=== PATIENT | female | born 1990 | race Caucasian/White ===

== ENCOUNTER 2019-05-22 19:48 | Emergency (ER) | payer OTHER ==
[2019-05-22 20:48] LABS: ABS Eosinophils 0.1 10^3/ul (0-0.6); ABS Lymphocytes 2.2 10^3/ul (1.0-4.8); ABS Monocytes 0.3 10^3/ul (0-0.8); ABS Neutrophils 6.8 10^3/ul (1.5-7.7); Eosinophil % 1.5 %; Hematocrit 40 % (35-47); Hemoglobin 13.4 g/dL (12.0-16.0); Lymphocyte % 22.8 %; Mean Corpuscular HGB Conc 33 g/dL (31-36); Mean Corpuscular Hemoglobin 31 pg (27-31); Mean Corpuscular Volume 91 fL (80-97); Mean Platelet Volume 7.2 fL (7.4-10.4); Platelet Count 285 10^3/uL (150-450); Red Blood Count 4.39 10^6 /uL (3.70-4.87); Red Cell Distribution Width 14 % (10-15); White Blood Count 9.5 10^3/uL (3.5-10.8)
[2019-05-22 21:06] LABS: Albumin 4.2 g/dL (3.2-5.2); Albumin/Globulin Ratio 1.8 (1-3); BUN/Creatinine Ratio 10.8 (8-20); C Reactive Protein 3.33 mg/L (<8.01); Calcium 9.3 mg/dL (8.6-10.3); EGFR African American 132.3 (>60); EGFR Non-African American 109.3 (>60); Globulin 2.4 g/dL (2-4); Potassium 3.2 mmol/L (3.5-5.0); Total Bilirubin 0.2 mg/dL (0.2-1.0); Total Protein 6.6 g/dL (6.4-8.9)
[2019-05-22] MEDS ORDERED: Ketorolac INJ* 30 MG/ML 1 ML VIAL IM ONE (21:31)
--- NOTE | 2019-05-22 21:31 | ED ---
HPI Chest Pain - HPI Summary HPI Summary: 28 year old female presents with chest pain for the past couple days. She said it starts in the center of her chest. States that has moved into her right arm. She said that when she moves her arms it is worse. She denies any shortness breath. Pain is unchanged when she takes a breath. She's not been sick recently. Does not change when she eats something. Denies any nausea vomiting. No abdominal pain. No sore throat. Has not been sick recently. States it hurts more when she is on her right side. She hasn't taking for her symptoms. She has never had this before. Does have family history of cardiac disease. Has no medical conditions. Is not on control. Denies any pain or swelling in her calf muscle. she denies any family history of blood clots. She is not on any kind of control. - History of Current Complaint Chief Complaint: EDChestPainROMI Time Seen by Provider: 05/22/19 20:19 Pain Intensity: 8 - Allergy/Home Medications Allergies/Adverse Reactions: Allergies Allergy/AdvReac Type Severity Reaction Status Date / Time latex Allergy Hives Verified 05/22/19 19:58 Penicillins Allergy GI Upset Verified 05/22/19 19:58 tramadol Allergy Hives Verified 05/22/19 19:58 PMH/Surg Hx/FS Hx/Imm Hx Endocrine/Hematology History: Denies: Hx Anticoagulant Therapy Respiratory History: Denies: Hx Asthma Infectious Disease History: No Infectious Disease History: Denies: Traveled Outside the [place] in Last 30 Days - Family History Known Family History: Positive: Cardiac Disease - Social History Alcohol Use: None Substance Use Type: Reports: None Smoking Status (MU): Heavy Every Day Tobacco Smoker Review of Systems Negative: Fever Positive: Chest Pain Negative: Shortness Of Breath, Cough Negative: Abdominal Pain All Other Systems Reviewed And Are Negative: Yes Physical Exam Triage Information Reviewed: Yes Vital Signs On Initial Exam: Initial Vitals Temp Pulse Resp BP Pulse Ox 97.2 F 66 15 124/85 100 05/22/19 19:56 05/22/19 19:56 05/22/19 19:56 05/22/19 19:56 05/22/19 19:56 Vital Signs Reviewed: Yes Appearance: Positive: Well-Appearing Skin: Positive: Warm, Dry Head/Face: Positive: Normal Head/Face Inspection Eyes: Positive: Normal, Conjunctiva Clear ENT: Positive: Pharynx normal Respiratory/Lung Sounds: Positive: Clear to Auscultation, Breath Sounds Present , Other - reproducible chest pain Cardiovascular: Positive: Normal, RRR Abdomen Description: Positive: Nontender, Soft Bowel Sounds: Positive: Present Musculoskeletal: Positive: Normal Neurological: Positive: Normal Psychiatric: Positive: Normal Procedures - Sedation Patient Received Moderate/Deep Sedation with Procedure: No Diagnostics - Vital Signs Vital Signs Temp Pulse Resp BP Pulse Ox 05/22/19 21:00 64 28 94 05/22/19 20:52 65 18 116/76 99 05/22/19 20:36 72 16 130/82 99 05/22/19 20:22 64 18 125/77 100 05/22/19 20:19 76 95 05/22/19 19:56 97.2 F 66 15 124/85 100 - Laboratory Lab Results: Lab Results 05/22/19 05/22/19 05/22/19 Range/Units 20:39 20:39 20:39 WBC 9.5 (3.5-10.8) 10^3/uL RBC 4.39 (3.70-4.87) 10^6 /uL Hgb 13.4 (12.0-16.0) g/dL Hct 40 (35-47) % MCV 91 (80-97) fL MCH 31 (27-31) pg MCHC 33 (31-36) g/dL RDW 14 (10-15) % Plt Count 285 (150-450) 10^3/uL MPV 7.2 L (7.4-10.4) fL Neut % (Auto) 71.8 % Lymph % (Auto) 22.8 % Dougherty % (Auto) 3.6 % Eos % (Auto) 1.5 % Baso % (Auto) 0.3 % Absolute Neuts (auto) 6.8 (1.5-7.7) 10^3/ul Absolute Lymphs (auto) 2.2 (1.0-4.8) 10^3/ul Absolute Monos (auto) 0.3 (0-0.8) 10^3/ul Absolute Eos (auto) 0.1 (0-0.6) 10^3/ul Absolute Basos (auto) 0.0 (0-0.2) 10^3/ul Absolute Nucleated RBC 0.0 10^3/ul Nucleated RBC % 0.0 Sodium 139 (135-145) mmol/L Potassium 3.2 L (3.5-5.0) mmol/L Chloride 106 (101-111) mmol/L Carbon Dioxide 28 (22-32) mmol/L Anion Gap 5 (2-11) mmol/L BUN 7 (6-24) mg/dL Creatinine 0.65 (0.51-0.95) mg/dL Est GFR ( Amer) 132.3 (>60) Est GFR (Non-Af Amer) 109.3 (>60) BUN/Creatinine Ratio 10.8 (8-20) Glucose 90 (70-100) mg/dL Lactic Acid 1.2 (0.5-2.0) mmol/L Calcium 9.3 (8.6-10.3) mg/dL Total Bilirubin 0.20 (0.2-1.0) mg/dL AST 11 L (13-39) U/L ALT 12 (7-52) U/L Alkaline Phosphatase 75 (34-104) U/L Troponin I 0.00 (<0.03) ng/mL C-Reactive Protein 3.33 (<8.01) mg/L B-Natriuretic Peptide (<=100) pg/mL Total Protein 6.6 (6.4-8.9) g/dL Albumin 4.2 (3.2-5.2) g/dL Globulin 2.4 (2-4) g/dL Albumin/Globulin Ratio 1.8 (1-3) 05/22/19 Range/Units 20:39 WBC (3.5-10.8) 10^3/uL RBC (3.70-4.87) 10^6 /uL Hgb (12.0-16.0) g/dL Hct (35-47) % MCV (80-97) fL MCH (27-31) pg MCHC (31-36) g/dL RDW (10-15) % Plt Count (150-450) 10^3/uL MPV (7.4-10.4) fL Neut % (Auto) % Lymph % (Auto) % Dougherty % (Auto) % Eos % (Auto) % Baso % (Auto) % Absolute Neuts (auto) (1.5-7.7) 10^3/ul Absolute Lymphs (auto) (1.0-4.8) 10^3/ul Absolute Monos (auto) (0-0.8) 10^3/ul Absolute Eos (auto) (0-0.6) 10^3/ul Absolute Basos (auto) (0-0.2) 10^3/ul Absolute Nucleated RBC 10^3/ul Nucleated RBC % Sodium (135-145) mmol/L Potassium (3.5-5.0) mmol/L Chloride (101-111) mmol/L Carbon Dioxide (22-32) mmol/L Anion Gap (2-11) mmol/L BUN (6-24) mg/dL Creatinine (0.51-0.95) mg/dL Est GFR ( Amer) (>60) Est GFR (Non-Af Amer) (>60) BUN/Creatinine Ratio (8-20) Glucose (70-100) mg/dL Lactic Acid (0.5-2.0) mmol/L Calcium (8.6-10.3) mg/dL Total Bilirubin (0.2-1.0) mg/dL AST (13-39) U/L ALT (7-52) U/L Alkaline Phosphatase (34-104) U/L Troponin I (<0.03) ng/mL C-Reactive Protein (<8.01) mg/L B-Natriuretic Peptide 17 (<=100) pg/mL Total Protein (6.4-8.9) g/dL Albumin (3.2-5.2) g/dL Globulin (2-4) g/dL Albumin/Globulin Ratio (1-3) Result Diagrams: 05/22/19 20:39 05/22/19 20:39 Lab Statement: Any lab studies that have been ordered have been reviewed, and results considered in the medical decision making process. - Radiology chest Radiology Interpretation Completed By: ED Physician Summary of Radiographic Findings: no active disease - EKG No standard instances Cardiac Rate: NL EKG Rhythm: Sinus Rhythm Summary of EKG Findings: sinus rhythm Re-Evaluation - Re-Evaluation First Eval Re-Evaluation Time: 22:14 Change: Improved Comment: feeling better Chest Pain Course/Dx - Course Course Of Treatment: 28 year old female presents with chest pain for the past couple days. She said it starts in the center of her chest. States that has moved into her right arm. She said that when she moves her arms it is worse. She denies any shortness breath. Pain is unchanged when she takes a breath. She's not been sick recently. Does not change when she eats something. Denies any nausea vomiting. No abdominal pain. No sore throat. Has not been sick recently. States it hurts more when she is on her right side. She hasn't taking for her symptoms. She has never had this before. Does have family history of cardiac disease. Has no medical conditions. Is not on control. Denies any pain or swelling in her calf muscle. she denies any family history of blood clots. She is not on any kind of control. On exam has reproducible chest pain. EKG shows a sinus rhythm. Troponin 0. No risk factors for blood clot. heart score 2. improvement with toradol. Will discharge with chest wall pain. Patient understands and agrees plan. - Chest Pain Differential Diagnosis/HQI/PQRI: Angina, Chest Wall, Pulmonary Embolism - Diagnoses Provider Diagnoses: Chest wall pain Discharge ED - Sign-Out/Discharge Documenting (check all that apply): Patient Departure - Discharge Plan Condition: Good Disposition: HOME Patient Education Materials: Chest Wall Pain (ED) Referrals: Sandra Adhikari NP [Primary Care Provider] - Additional Instructions: Take ibuprofen or Tylenol every 6 hours as needed for pain Follow up with primary within 5 days Return to ED if develop any new or worsening symptoms - Billing Disposition and Condition Condition: GOOD Disposition: Home
[2019-05-22] MEDS ORDERED: Potassium Chloride* LIQUID 20 MEQ/15 ML UDC PO ONE (22:12)
[2019-05-22 22:30] VITALS: BP 125/72
== END 2019-05-22 22:17 | disposition home or self-care (01) ==
LOC: ED 19:48
DX: R07.89 Other chest pain (principal); Z88.5 Allergy status to narcotic agent; Z88.0 Allergy status to penicillin; Z91.040 Latex allergy status; F17.200 Nicotine dependence, unspecified, uncomplicated
CPT/HCPCS: 36415; 71046; 80053; 83605; 83880; 84484; 85025; 85379; 86140; 93005; 96372; 99282; A9270-GY; J1885

== ENCOUNTER 2019-07-07 13:34 | Emergency (ER) | payer OTHER ==
--- OUTSIDE RECORDS SUMMARY | 2019-07-07 13:41 | XMS REPORT | Continuity of Care Document ---
:1990 External Reference #:[id number] Author Name Champ Hickman Description No Information Available Social History Type Date Description Comments Sex Unknown Allergies, Adverse Reactions, Alerts Description No Information Available Medications Description No Information Available Immunizations Description No Information Available Vital Signs Description No Information Available Results Description No Information Available Procedures Date Code Description Status 06/07/2019 10872 Holter Monitor Review (24 hr)dr hernández & clemente only Completed Medical Devices Description No Information Available Encounters Description No Information Available Assessments Date Code Description Provider 06/07/2019 R00.2 Palpitations Silva Musa M.D. Plan of Treatment Future Appointment(s):08/24/2019 1:00 pm - Pedro Luis Aceves M.D. at [facility] Functional Status Description No Information Available Mental Status Description No Information Available Referrals Description No Information Available
--- OUTSIDE RECORDS SUMMARY | 2019-07-07 13:41 | XMS REPORT | Continuity of Care Document ---
:1990 External Reference #:[id number] Author Name Kingsley Dumont M.D. (transmitted by agent of provider Venus Dahl) Address [address] [place] [address] Care Team Providers Name Role Phone Sandra Adhikari NP - Family Care Team Information Floorworker Lasting [phone] Problems Description No Information Available Social History Type Date Description Comments Sex Unknown Tobacco Use Start: Unknown Light tobacco smoker (10 or fewer cigarettes/day) Smoking Status Reviewed: 06/15/19 Light tobacco smoker (10 or fewer cigarettes/day) ETOH Use Denies alcohol use Tobacco Use Start: Unknown Light tobacco smoker (10 or fewer cigarettes/day) Recreational Drug Use Denies Drug Use Allergies, Adverse Reactions, Alerts Active Allergies Reaction Severity Comments Date Penicillin 06/15/2019 Tramadol 06/15/2019 Medications Active Medications SIG Qnty Indications Ordering Provider Date Hydroxyzine HCL 3 times a day as Unknown 50mg needed Tablets Paxil 1 by mouth every Unknown 20mg Tablets day Immunizations Description No Information Available Vital Signs Date Vital Result Comment 06/15/2019 3:39pm Height 63 inches 5'3" Weight 204.31 lb with shoes Heart Rate 74 /min BP Systolic 108 mmHg Rue large cuff BP Diastolic 68 mmHg Rue large cuff BP Systolic Sitting 112 mmHg Lue large cuff BP Diastolic Sitting 72 mmHg Lue large cuff BP Systolic Standing 102 mmHg Lue large cuff BP Diastolic Standing 68 mmHg Lue large cuff Respiratory Rate 18 /min BMI (Body Mass Index) 36.2 kg/m2 Ejection Fraction 50-55% ECHO 06/07/2019 Results Test Acquired Date Facility Test Result H/L Range Note Laboratory test 06/15/2019 [facility] Cortisol <pending> finding [address] [place] [address] [phone] Iron (Fe) <pending> Magnesium <pending> Vitamin B12 And Folate 06/15/2019 [facility] Vitamin B12 < pending> Serum [address] [place] [address] [phone] Folic Acid (Folate) <pending> Procedures Date Code Description Status 06/15/2019 92275 EKG Tracing & Interpretation Completed 06/07/2019 06300 Holter Monitor Review (24 hr)dr hernández & interp only Completed Medical Devices Description No Information Available Encounters Description No Information Available Assessments Date Code Description Provider 06/15/2019 R00.2 Palpitations Kingsley Dumont M.D. 06/15/2019 R00.0 Tachycardia, unspecified Kingsley Dumont M.D. 06/15/2019 E66.9 Obesity, unspecified Kingsley Dumont M.D. 06/15/2019 R07.9 Chest pain, unspecified Kingsley Dumont M.D. 06/15/2019 Z82.49 Family history of ischemic heart Kingsley Dumont M.D. disease and other diseases of the circulatory system 06/15/2019 Z71.6 Tobacco abuse counseling Kingsley Dumont M.D. 06/07/2019 R00.2 Palpitations Silva Musa M.D. Plan of Treatment Future Appointment(s):08/10/2019 4:40 pm - Kingsley Dumont M.D. at [facility]07/06/2019 8:45 am - Ica ECHO Schedule at [facility]07/06/2019 9:15 am - Kingsley Dumont M.D. at [facility]08/24/2019 1:00 pm - Pedro Luis Aceves M.D. at [facility]06/15/2019 - Kingsley Dumont M.D.R00.2 PalpitationsFollow up:5-8 wks ov to discuss all jouqqP08.0 Tachycardia, unspecifiedNew Orders:[facility], Ordered: E66.9 Obesity, [id number] Chest pain, unspecifiedNew Orders:Stress Test , Treadmill, No Imaging, Ordered: 06/15/19Z82.49 Family history of ischemic heart disease and other diseases of the circulatory cflnagZ60.6 Tobacco abuse counseling Functional Status Description No Information Available Mental Status Description No Information Available Referrals Description No Information Available
--- OUTSIDE RECORDS SUMMARY | 2019-07-07 13:41 | XMS REPORT | Continuity of Care Document ---
:1990 Author Organization 2019 [employer] [facility] Address [address] [place] [address] Phone Care Team Providers Name Role Phone [employer] Unavailable Unavailable Allergies, Adverse Reactions, Alerts Substance Reaction Status tramadol Hives (severe) Active Penicillins Active latex Hives Active Medications Medication Instructions Dosage Effective Dates Status Comments (start - stop) Ventolin HFA 90 inhale 2 puff by 180 MCG - Active mcg/actuation inhalation route aerosol inhaler every 4 - 6 hours as needed Advair Diskus 100 inhale 1 puff by 1.00 puff - Active mcg-50 mcg/dose inhalation route 2 powder for times every day in inhalation the morning and evening approximately 12 hours apart paroxetine 20 mg take 1 tablet by 20 MG - Active tablet oral route every day hydroxyzine HCl 50 take 1 tablet by 50 MG - Active mg tablet oral route 3 times every day Wellbutrin 100 mg take 1 tablet by 100 MG - No Longer tablet oral route 3 times Active every day Problems Condition Effective Dates (start - stop) Clinical Status Pseudotumor cerebri Irregular menses Moderate persistent reactive airway disease without complication PTSD (post-traumatic stress disorder) Anxiety Encounter For Removal Of Sutures - Wound Procedures Procedure Date Procedure Unknown Results Test Name Date and Time Measure Units Reference Range Abnormal Flag Status Comments Unknown Encounters Encounter Practice Location Reason(s) Diagnoses Date Provider Providers Description For Visit Copied on Encounter 2019 [facility] Pseudotumor Apr- [facility] [employer] [facility], Primary cerebriIrregular 1-[address] [place]. [address] m[address]erate [address] , [facility], reactive airway [address]. [place] disease without tel:[phone] [place], [place], complicationPTSD [phone], [place] (post-traumatic tel:+ stress [phone] disorder)Anxiety 0001 - S Apr- [facility], Primary 0[address] [place]. 33- Care [address] [place] [address] [place], [place], [address]. Kranthi tel:[phone] [place], [address], [place] tel:+ [phone] - S Encounter For Nov-2 INFANTE MARTIN. S Inc, Primary Removal Of [address]- Care Sutures [address] [place], [place], [facility] [address]. Kranthi tel:[phone] [place], [address], [place] tel:+ [phone] - S Wound Nov- MASHRIQI Referring S [facility], Primary 5-201 [place]. Provider: Care 4 [facility] Hospitalist [facility], [place], [place], [place], [place], Hospitalist [address], [place] [address]. Program, tel: tel:[phone] Kranthi [phone] [address] [place], [address]. tel:[phone] Family History Family Member Diagnosis Age At Onset Unknown Immunizations Vaccine Date Status Comments Immunization Unknown Payers Payer name Insurance type Covered alliance party ID Authorization(s) Unknown Social History Type Description Quantity Date Captured Comments Alcohol Use Details Unknown Caffeine Use Details Unknown Tobacco Use Status Unknown Smoking Status Unknown Vital Signs Date / Height Weight BMI Pulse Blood Temperature Respiratory Body Head BMI Time: Rate Pressure Rate Surface Circumference percentile Area Unknown Chief Complaint And Reason For Visit No information Reason For Referral Reason For Referral Unknown Plan Of Care Date Type Action Status Referral Ordered: ordered Neurology (related to Pseudotumor cerebri) Referral Ordered: ordered Referrals: Neurology. Evaluate and treat Referral Ordered: ordered Referrals: Gynecology. Evaluate and treat Appointment date/timeframe: 05/25/2019 Appointment ILIA JUAREZ Appointment ILIA JUAREZ Date Type Problem Goal Intervention Status Start Date Unknown History Of Present Illness Encounter Date Complaint History Of Present Illness No information Functional Status Encounter Date Functional Assessment Cognitive Assessment Unknown Medications Administered Medication Instructions Dosage Effective Dates (start - stop) Status Comments Drug Treatment Unknown Instructions Date Instruction Additional Information referral to Neurology patient did not Related to Pseudotumor cerebri tolerate Diamox, was seeing Chris King at [facility] and would like a second opinion Referral to SWATCH CHECKER Related to Irregular menses start advair 1 inhalation 2xdayuse Related to Moderate persistent albuterol 2 puffs every 4-6 hours PRN reactive airway disease without complication Start Paxil at once per day at Related to PTSD (post-traumatic nighttime. Risks and benefits of new stress disorder) medication discussed. Patient verbalized understanding start hydroxyzine as needed up to Related to Anxiety 3xday Risks and benefits of new medication discussed. Patient verbalized understanding Sutures removed without complication, Related to Encounter For Removal Of bacitracin applied and bandaid. Sutures Advised patient to use bacitracin BID and keep covered for 2-3 days. If any worsening pain, redness, swelling, or drainage from site, advised to return to office. You will need to keep the stitches in Related to Wound for another 3 more days for the complete of 10 days. Please make an appointment for removal of sutures.
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
--- OUTSIDE RECORDS SUMMARY | 2019-07-07 13:41 | XMS REPORT | Continuity of Care Document ---
:1990 Author Organization 2019 - [employer] Address [address] [place] [address] Phone Care Team Providers Name Role Phone KIMBERLEY SHIP FITTERROSALBA Unavailable Unavailable Allergies, Adverse Reactions, Alerts Substance [...] 2 powder for times every day in the inhalation morning and evening approximately 12 hours apart paroxetine 20 mg take 1 tablet by oral 20 MG - Active tablet route every day hydroxyzine HCl 50 take 1 tablet by oral 50 MG - Active mg tablet route 3 times every day Problems Condition Effective Dates (start [...] Description For Visit Copied on Encounter 2019 - [employer] Heart May- [facility] [employer], Primary palpitationsChes 0-202 ROSALBA. 54 33-57 Care t pain, [address], Mike [place] unspecified type [place], [facility], [address]. [place] tel:[phone] [place], [address] tel:[phone] 0001 - S Yuan-0 [employer], Primary 3-202 ROSALBA. 54 -57 Care [address] , Mikemickie Carroll [place], [place], [place], [address]. Kranthi tel:[phone] [place], [address], [place] tel:[phone] 0001 - S Pseudotumor Apr- [employer], Primary cerebriIrregular 1-201 ROSALBA. 54 33-57 Care mensesModerate [address] , Mikemickie Carroll persistent [place], [place], [place], reactive airway [address]. Kranthi disease without tel:[phone] [place], [place], complicationPTSD [phone], [place] (post-traumatic tel:+ stress [phone] disorder)Anxiety 0001 - [facility] Encounter For Nov- INFANTE MARTIN. S Inc, Primary Removal Of [address] 4 [facility] Mike [place], [place], [facility] [address]. Kranthi tel:[phone] [place], [address], [place] tel:[phone] 0001 - S Wound Nov- MASHRIQI Referring S Inc, Primary 5-201 SOHAIL. Provider: Care [address] [place] [address] SOHAIL Mike Crisostomo Hospitalist [facility] Program, Kranthi [place], [place], [place], [place], [place] [address], [place] [address]. Program, tel: tel:[phone] Kranthi [phone] [phone] [place], [address]. tel:[phone] Family History Family Member Diagnosis Age At Onset Unknown Immunizations Vaccine Date Status Comments Immunization Unknown Payers Payer name Insurance type Covered constitution party ID Authorization(s) Kedar Monterroso [id number] Social History Type Description Quantity Date Captured Comments Alcohol Use Details Unknown Caffeine Use Details Unknown Tobacco Use Status Smoking Status Unknown Vital Signs Date / Height Weight BMI Pulse Blood Temperature Respiratory Body Head BMI Time: Rate Pressure Rate Surface Circumference percentile Area Unknown Chief Complaint And Reason For Visit No information Reason For Referral Reason For Referral Unknown Plan Of Care Date Type Action Status Referral Ordered: ordered Echocardiography Appointment date/timeframe: 06/07/2019 Referral Ordered: ordered Holter monitor/24 hrs, complete Appointment date/timeframe: 06/06/2019 Referral Ordered: ordered Neurology (related to Pseudotumor cerebri) Referral Ordered: ordered Referrals: Neurology. Evaluate and treat Referral Ordered: ordered Referrals: Gynecology. Evaluate and treat Appointment date/timeframe: 05/25/2019 Appointment RITIKA CHAN Date Type Problem Goal Intervention Status [...] tolerate Diamox, was seeing Chris King at [place] and would like a second opinion Referral to FLAME HARDENING MACHINE SETTER Related to Irregular menses start advair 1 [...]
[2019-07-07 14:17] VITALS: BP 123/54
[2019-07-07 14:39] LABS: Influenza A Molecular Negative (Negative); Influenza B Molecular Negative (Negative)
--- NOTE | 2019-07-07 14:51 | UC ---
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 no sore throat. pt is nauseous. symptoms for three days. Pleasant 28 yo female c/o last 3 days progressively worse feeling bad, achy, h/a, gi upset (but w/o v/d/melena/brpr), fatigue no rash no new urinary sx - History of Current Complaint Chief Complaint: UCGeneralIllness Stated Complaint: FLU LIKE SYMPTOMS Hx Obtained From: Patient Hx Last Menstrual Period: early this month Pain Intensity: 9 - Allergy/Home Medications Allergies/Adverse Reactions: Allergies Allergy/AdvReac Type Severity Reaction Status Date / Time latex Allergy Hives Verified 07/07/19 14:17 Penicillins Allergy GI Upset Verified 07/07/19 14:17 tramadol Allergy Hives Verified 07/07/19 14:17 Home Medications: Home Medications Albuterol inh POWDER (NF) [Proair Respiclick] 2 puff INH Q6HR PRN 07/07/19 [ History Confirmed 07/07/19] Fluticas/Salmet 115/21 HFA(NF) [Advair HFA 115/21 (NF)] 1 dose PO BID 07/07/19 [ History Confirmed 07/07/19] PARoxetine HCL TAB* [Paxil TAB*] 1 tab PO DAILY 07/07/19 [History Confirmed ] hydrOXYzine HCL TAB* [Atarax TAB 50 MG *] 1 tab PO TID 07/07/19 [History Confirmed 07/07/19] PMH/Surg Hx/FS Hx/Imm Hx Previously Healthy: Yes - wearing 30 day event monitor Other History Of: Negative For: Anticoagulant Therapy - Surgical History Surgical History: Yes Surgery Procedure, Year, and Place: 2014 cyst removal. 2019 tubal - Family History Known Family History: Positive: Cardiac Disease - Social History Alcohol Use: None Substance Use Type: None Smoking Status (MU): Heavy Every Day Tobacco Smoker Amount Used/How Often: 1/2ppd Have You Smoked in the Last Year: Yes Household Exposure Type: Cigarettes Review of Systems All Other Systems Reviewed And Are Negative: Yes Constitutional: Positive: Fever, Fatigue Skin: Positive: Negative Eyes: Positive: Negative ENT: Positive: Other - see hpi Respiratory: Positive: Other - see hpi Cardiovascular: Positive: Other - see hpi Gastrointestinal: Positive: Other - see hpi Genitourinary: Positive: Negative Motor: Positive: Other - see hpi Musculoskeletal: Positive: Other: - see hpi Neurological/Mental Status: Positive: Other - see hpi Psychological: Positive: Negative Is Patient Immunocompromised?: No Physical Exam Triage Information Reviewed: Yes Appearance: Well-Nourished - sitting up, conversing in full sentances looks tired but nad Vital Signs: Initial Vital Signs Temp 100.1 F 07/07/19 14:11 Pulse 71 07/07/19 14:11 Resp 18 07/07/19 14:11 BP 123/54 07/07/19 14:11 Pulse Ox 99 07/07/19 14:11 Vital Signs Reviewed: Yes Eye Exam: Normal ENT: Positive: Pharyngeal erythema - mild red, no sores, Nasal congestion, TM dull Neck exam: Normal - no meningismus Neck: Positive: Supple, Nontender, No Lymphadenopathy Respiratory Exam: Other - + cough Respiratory: Positive: Normal breath sounds, No respiratory distress Cardiovascular Exam: Normal Cardiovascular: Positive: RRR, No Murmur, Pulses Normal, Brisk Capillary Refill Abdominal Exam: Normal Abdomen Description: Positive: Nontender Musculoskeletal Exam: Normal Neurological Exam: Normal - grossly nad Psychological Exam: Normal - nad Skin Exam: Normal - nondiaphoretic no visible or reported rash Course/Dx - Course Course Of Treatment: Influenza a/b neg S/sx c/w flu like illness no recent travel Reviewed coa / tx plan. Hydrate, seek medical attention for worse or new problems - Diagnoses Provider Diagnosis: Viral syndrome Discharge ED - Sign-Out/Discharge Documenting (check all that apply): Patient Departure All imaging exams completed and their final reports reviewed: No Studies - Discharge Plan Condition: Stable Disposition: HOME Patient Education Materials: Viral Syndrome (ED) Forms: *Work Release Referrals: Sandra Adhikari NP [Primary Care Provider] - Kingsley Dumont MD [Medical Doctor] - Additional Instructions: Please seek medical attention for worse or new problems. Hydrate. - Billing Disposition and Condition Condition: STABLE Disposition: Home
== END 2019-07-07 15:04 | disposition home or self-care (01) ==
LOC: UCEAST 13:34
DX: R51 Headache (principal); R52 Pain, unspecified; R53.83 Other fatigue; F17.210 Nicotine dependence, cigarettes, uncomplicated; Z88.0 Allergy status to penicillin; Z91.040 Latex allergy status; Z88.5 Allergy status to narcotic agent
CPT/HCPCS: 99211; G0463

== ENCOUNTER 2019-09-02 02:12 | Emergency (ER) | payer OTHER ==
[2019-09-02] MEDS ORDERED: LORazepam TAB(*) 1 MG PO ONE (02:29)
--- NOTE | 2019-09-02 02:33 | ED ---
Headache - HPI Summary HPI Summary: This pt is a 28 Y/O F presenting to [facility] with a CC of a headache, described as a migraine that has been present for 2 weeks. She states that she has begun treatments with Dr. Aceves and was seen by a insole and outsole preparer who stated that there is increased pressure behind her R eye. She states that the pain is rated a 6/10 in severity. She states that she has experienced blurry vision in her L eye and photophobia. She denies any fevers, chills, N/V, SOB, CP, sore throats, and abdominal pain. She has a PMHx of spinal fluid removal procedures with the last one occurring in March 2019. She was diagnosed with migraines. - History Of Current Complaint Chief Complaint: EDHeadache Stated Complaint: MIGRAINE PER PT Time Seen by Provider: 09/02/19 02:20 Hx Obtained From: Patient Last Known Well Date: 2 weeks ago Hx Last Menstrual Period: early this month Onset/Duration: Sudden Onset, Still Present, Worse Since - onset Initially Headache Was: Mild Currently Pain Is: Current Pain Scale(0-10)= - 6 Timing: Constant Character: Migraine Location of Headache: Occipital Aggravating Factor: Bright Lights Allevating Factors: Nothing Associated Signs And Symptoms: Negative - fevers, chills, N/V, SOB, CP, sore throats, and abdominal pain, Visual Changes - blurry vision, photophobia - Allergies/Home Medications Allergies/Adverse Reactions: Allergies Allergy/AdvReac Type Severity Reaction Status Date / Time acetazolamide Allergy Hives Verified 09/02/19 02:35 [From Diamox Sequels] latex Allergy Hives Verified 09/02/19 02:35 Penicillins Allergy GI Upset Verified 09/02/19 02:35 tramadol Allergy Hives Verified 09/02/19 02:35 Home Medications: Home Medications Albuterol inh POWDER (NF) [Proair Respiclick] 2 puff INH Q6HR PRN 07/07/19 [ History Confirmed 09/02/19] PARoxetine HCL TAB* [Paxil TAB*] 1 tab PO QPM 07/07/19 [History Confirmed ] hydrOXYzine HCL TAB* [Atarax TAB 50 MG *] 1 tab PO TID PRN 07/07/19 [History Confirmed 09/02/19] Fluticasone-Salmeterol 100-50* [Advair Diskus 100-50*] 1 puff INH BID 09/02/19 [ History Confirmed 09/02/19] PMH/Surg Hx/FS Hx/Imm Hx Previously Healthy: Yes Endocrine/Hematology History: Denies: Hx Anticoagulant Therapy Respiratory History: Reports: Hx Asthma Sensory History: Reports: Hx Contacts or Glasses Opthamlomology History: Reports: Hx Contacts or Glasses Neurological History: Reports: Hx Headaches, Hx Migraine Psychiatric History: Reports: Hx Anxiety, Hx Depression, Hx Post Traumatic Stress Disorder - Cancer History Hx Chemotherapy: No Hx Radiation Therapy: No - Surgical History Surgical History: Yes Surgery Procedure, Year, and Place: 2015 cyst removal. 2019 tubal - Immunization History Immunizations Up to Date: Yes Infectious Disease History: No Infectious Disease History: Denies: Traveled Outside the [place] in Last 30 Days - Family History Known Family History: Positive: Cardiac Disease - Social History Occupation: Employed Full-time Lives: Alone Alcohol Use: None Hx Substance Use: No Substance Use Type: Reports: None Hx Tobacco Use: Yes Smoking Status (MU): Heavy Every Day Tobacco Smoker Amount Used/How Often: 1/2ppd Have You Smoked in the Last Year: Yes Review of Systems Negative: Fever, Chills Positive: Photophobia, Blurred Vision Negative: Sore Throat Negative: Chest Pain Negative: Shortness Of Breath Negative: Abdominal Pain, Vomiting, Nausea Negative: Headache All Other Systems Reviewed And Are Negative: Yes Physical Exam - Summary Physical Exam Summary: Appearance: Well-appearing, Well-nourished, lying in bed comfortable Skin: Warm, dry, no obvious rash Eyes: sclera anicteric, no conjunctival pallor ENT: mucous membranes moist Neck: deferred Respiratory: No signs of respiratory distress Cardiovascular: Appears well perfused, pulses are nml Abdomen: deferred Musculoskeletal: Moving all 4 extremities without obvious discomfort Neurological: Awake and alert, mentation is normal, speech is fluent and appropriate Psychiatric: affect is normal, does not appear anxious or depressed Triage Information Reviewed: Yes Vital Signs On Initial Exam: Initial Vitals Temp Pulse Resp BP Pulse Ox 97.3 F 86 16 132/101 99 09/02/19 02:14 09/02/19 02:14 09/02/19 02:14 09/02/19 02:14 09/02/19 02:14 Vital Signs Reviewed: Yes Procedures - Sedation Patient Received Moderate/Deep Sedation with Procedure: No Diagnostics - Vital Signs Vital Signs Temp Pulse Resp BP Pulse Ox 09/02/19 02:14 97.3 F 86 16 132/101 99 - Laboratory Lab Statement: Any lab studies that have been ordered have been reviewed, and results considered in the medical decision making process. Headache Course/Dx - Course Course Of Treatment: This pt is a 28 Y/O F presenting to [facility] with a CC of a headache, described as a migraine that has been present for 2 weeks. She states that she has begun treatments with Dr. Aceves and was seen by a insole and outsole preparer who stated that there is increased pressure behind her R eye. She states that the pain is rated a 6/10 in severity. She had no abnormalities on her PE. She will receive ativan to help calm her down to preform a spinal tap to assess fluid build-up. She was given Lidocaine and Ativan during her ED course. She will be signed out to Dr. Gaytan at 0700 09/02/2019 pending a theraputic lumbar punture by anesthesia and disposition. Attempt at LP was unsuccessful, pt is moderately obese and I was unable to feel definite landmarks. I spoke to Dr. Hernandez from anesthesia, either he or one of his colleagues will come to the ED in the am to perform therapeutic LP. We will need a pressure measurement and enough fluid removed to get CSF pressure below 20 cm. - Diagnoses Provider Diagnoses: IIH (idiopathic intracranial hypertension) - Critical Care Time Critical Care Statement: Critical care time is provided exclusive of any time spent performing procedures. Discharge ED - Sign-Out/Discharge Documenting (check all that apply): Sign-Out Patient Signing out patient TO: Karel Gaytan - Discharge Plan Condition: Good Referrals: Sandra Adhikari NP [Primary Care Provider] - - Attestation Statements Document Initiated by Scribe: Yes Documenting Scribe: Jimi Reyna Provider For Whom Scribe is Documenting (Include Credential): David Healy MD Scribe Attestation: Jimi Laura, scribed for David Healy MD on 09/02/19 at 0609. Status of Scribe Document: Ready
[2019-09-02] MEDS ORDERED: Lidocaine 2% 10 ML* VIAL INJ ONE (02:38)
[2019-09-02] MEDS ORDERED: Lidocaine 2% PF * 5 ML VIAL INJ ONE (03:00)
--- OUTSIDE RECORDS SUMMARY | 2019-09-02 04:16 | XMS REPORT | Continuity of Care Document ---
:1990 Author Organization 0001 - [facility] Address [address] [place] [address] Phone Care Team Providers Name Role Phone KIMBERLEY VEHICLE OPERATORROSALBA Unavailable Unavailable Allergies, Adverse Reactions, Alerts Substance Reaction Status tramadol Hives (severe) Active Penicillins Active latex Hives Active Medications Medication Instructions Dosage Effective Dates Status Comments (start - stop) hydroxyzine HCl 50 take 1 tablet by 50 MG - Active mg tablet oral route 3 times every day Advair Diskus 100 inhale 1 puff by 1.00 puff - Active mcg-50 mcg/dose inhalation route 2 powder for times every day in inhalation the morning and evening approximately 12 hours apart paroxetine 20 mg take 1 tablet by 20 MG - Active tablet oral route every day Ventolin HFA 90 inhale 2 puff by 180 MCG - Active mcg/actuation inhalation route aerosol inhaler every 4 - 6 hours as needed azithromycin 250 mg take 2 tablet by 500 MG - No Longer tablet oral route every Active day for 1 day then 1 tablet (250 mg) by oral route once daily for 4 days Advair Diskus 100 inhale 1 puff by 1.00 puff - No Longer mcg-50 mcg/dose inhalation route 2 Active powder for times every day in inhalation the morning and evening approximately 12 hours apart paroxetine 20 mg take 1 tablet by 20 MG - No Longer tablet oral route every Active day hydroxyzine HCl 50 take 1 tablet by 50 MG - No Longer mg tablet oral route 3 times Active every day Problems Condition Effective Dates (start - stop) Clinical Status Moderate persistent asthma with - (acute) exacerbation Chest pain, unspecified type Heart palpitations Anxiety Heart palpitations Chest pain, unspecified type Pseudotumor [...] Providers Description For Visit Copied on Encounter 0001 - [facility], Primary ROS[place]. 54 33[address]57 Care [address] [place], [place], [address], [address]. Kranthi tel:[phone] [place], [address], [place] tel:[phone] 0001 - [facility] Mar-2 [facility], Primary [place]. 33-57 Care 0 [address] [place], [place], [address], [address]. Kranthi tel:[phone] [place], [address], [place] tel:[phone] 0001 - S Moderate Mar-2 [facility], Primary persistent [place]. 33-57 Care asthma with 0 [address] [facility] (acute) [place], [place], [place], exacerbation [address]. Kranthi tel:[phone] [place], [address], [place] tel:[phone] 0001 - S Mar-0 [facility], Primary ROSAL[place]. 54 33-57 Care [address] [place], [place], [address], [address]. Kranthi tel:[phone] [place], [address], [place] tel:[phone] 0001 - [facility] Feb-0 [facility], Primary ROS[place]. 54 33-57 Care [address] [place], [place], [address], [address]. Kranthi tel:[phone] [place], [address], [place] tel:[phone] 0001 - S Chest pain, Yuan-3 [facility], Primary unspecified 1- ROSALBA. 54 - Care typeHeart [address] , Mike Carroll palpitationsAnxi [place], [place], [place] [address]. Kranthi tel:[phone] [place], [address], [place] tel:[phone] 0001 - [facility] Heart Yuan- [facility] S [facility], Primary palpitationsChes 0-202 ROSALBA. 54 - Care t pain, [address], Mike [place] unspecified type [place], [place], Street, [address]. Kranthi tel:[phone] [place], [address], [place] tel:[phone] 0001 - [facility] Pseudotumor Dec- [facility], Primary cerebriIrregular - ROSALBA. 54 - Care mensesModerate [address], Mike [place] persistent [place], [place], Street, reactive airway [address]. Kranthi disease without tel:[phone] [place], [place], complicationPTSD [phone], [place] (post-traumatic tel:+ stress [phone] disorder)Anxiety 0001 - [facility] Encounter For Nov- INFANTE MARTIN. S Inc, Primary Removal Of [address] [place] [address] Mike [facility] [address]. Kranthi tel:[phone] [place], [address], [place] tel:[phone] 0001 - [facility] Wound Nov- MASHRIQI Referring S Inc, Primary 5- SOHAIL. Provider: Care 4 Mike VELVET CannonA Mike Crisostomo Hospitalist [facility] [place] [facility], [place], [place], [place] [address], [place] [address]. Program, tel:+ tel:[phone] Kranthi [phone] [address] [place], [address]. tel:[phone] Family History Family Member Diagnosis Age At Onset Unknown Immunizations Vaccine Date Status Comments Immunization Unknown Payers Payer name Insurance type Covered green party ID Authorization(s) Kedar Monterroso [id number] Social History Type Description Quantity Date Captured [...] Date Type Action Status Referral Ordered: ordered Cardiology (related to Chest pain, unspecified type) Referral Ordered: ordered Referrals: Cardiology. Evaluate and treat Referral Ordered: ordered Echocardiography Appointment date/timeframe: 06/07/2019 Referral Ordered: ordered Holter monitor/24 hrs, complete Appointment date/timeframe: 06/06/2019 Referral Ordered: ordered Neurology (related to Pseudotumor cerebri) Referral Ordered: ordered Referrals: Neurology. Evaluate and treat Referral Ordered: ordered Referrals: Gynecology. Evaluate and treat Appointment date/timeframe: 05/25/2019 Date Type Problem Goal Intervention Status Start Date Unknown History Of Present Illness Encounter Date Complaint History Of Present Illness No information Functional Status Encounter Date Functional Assessment Cognitive Assessment Unknown Medications Administered Medication Instructions Dosage Effective Dates (start - stop) Status Comments Drug Treatment Unknown Instructions Date Instruction Additional Information paroxetine and hydroxyzine Related to Anxiety Complete lab work Related to Heart palpitations complete lab workReferral to Related to Chest pain, unspecified Cardiology for possible stress test type due to family history, and smoking. 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
--- OUTSIDE RECORDS SUMMARY | 2019-09-02 04:16 | XMS REPORT | Continuity of Care Document ---
:1990 External Reference #:[id number] Author Name Pedro Luis Aceves M.D. 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 Onset: 08/24/2019 Visual disturbance Pedro Luis Aceves M.D. Onset: 08/24/2019 Headache Pedro Luis Aceves M.D. Onset: 08/24/2019 Benign intracranial hypertension Pedro Luis Aceves M.D. Onset: 08/24/2019 Social History Type Date Description Comments Sex Unknown Tobacco Use Start: Unknown Light tobacco smoker (10 or fewer cigarettes/day) Smoking Status Reviewed: 08/23/19 Light tobacco smoker (10 or fewer cigarettes/day) ETOH Use Denies alcohol use Tobacco Use Start: Unknown Light tobacco smoker (10 or fewer cigarettes/day) Recreational Drug Use Denies Drug Use Exercise Type/Frequency Exercises regularly Allergies, Adverse Reactions, Alerts Active Allergies Reaction Severity Comments Date Penicillin 06/15/2019 Tramadol 06/15/2019 Diamox numbness/tingling feet rash 08/24/2019 Medications Active Medications SIG Qnty Indications Ordering Provider Date Hydroxyzine HCL 3 times a day as Unknown 50mg needed Tablets Paxil 1 by mouth every Unknown 20mg Tablets day Immunizations Description No Information Available Vital Signs Date Vital Result Comment 08/24/2019 12:44pm Height 63 inches 5'3" Weight 220.00 lb Heart Rate 88 /min BP Systolic Sitting 100 mmHg BP Diastolic Sitting 68 mmHg Body Temperature 96.9 F BMI (Body Mass Index) 39.0 kg/m2 06/15/2019 3:39pm Height 63 inches 5'3" Weight [...] Date Facility Test Result H/L Range Note Order 07/06/2019 [facility] Stress Test, <pending> [address] Treadmill, [place] [address] Imaging [phone] Urine Vma 06/29/2019 [facility] Urine Vma, 2.8 mg/24h <8.0 24HR [address] [facility] Adult [place], [place] [address] [phone] Urine Collection Duration 24 h Urine Total Volume 1000 mL 1 Urine Metanephrines 06/29/2019 [facility] Urine Metanephrine 84 mcg/24h 2 24HR [address] [place] [address] [phone] Urine Normetanephrine 228 mcg/24h 3 Urine Total Metanephrines 312 mcg/24h 4 Urine Collection Duration 24 h Urine Volume 1000 mL 5 Laboratory test 06/28/2019 [facility] Magnesium 2.1 mg/dL Normal 1.9-2.7 finding [address] [place] [address] [phone] Iron (Fe) 83 g/dL Normal 50-212 Cortisol 8.13 g/dL 6 Folic Acid (Folate) 11.70 ng/mL >3.99 Vitamin B12 332 pg/mL Normal 180-914 7 1,25 Dihydroxy 06/28/2019 [facility] Calcitriol 32 pg/mL 18- 78 8 Vitamin D [address] [place] [address] [phone] Laboratory test 06/15/2019 [facility] Cortisol <pending> finding [address] [place] [address] [phone] Iron (Fe) <pending> Magnesium <pending> Vitamin B12 And Folate 06/15/2019 [facility] Vitamin B12 < pending> Serum [address] [place] [address] [phone] Folic Acid (Folate) <pending> 1 ADDITIONAL INFORMATION Liquid Chromatography-Tandem Mass Spectrometry (LC-MS/MS). Values obtained from different assay methods or kits may be different and cannot be used interchangeably. The results cannot be interpreted as absolute evidence for the presence or absence of malignant disease. This test was developed and its performance characteristics determined by [facility] in a manner consistent with CLIA requirements. This test has not been cleared or approved by the U.S. Food and Drug Administration. Test Performed by: [facility] - [address] [address] Explosive Ordnance Technician: Quinton Persaud M.D. Ph.D.; CLIA# [id number] 2 REFERENCE VALUE 30-180 (Normotensive) <400 (Hypertensive) 3 REFERENCE VALUE 103-390 (Normotensive) <900 (Hypertensive) 4 REFERENCE VALUE 145-510 (Normotensive) <1300 (Hypertensive) 5 ADDITIONAL INFORMATION This test was developed and its performance characteristics determined by [facility] in a manner consistent with CLIA requirements. This test has not been cleared or approved by the U.S. Food and Drug Administration. Test Performed by: [facility] [employer] - [facility] [address] [place] [address] Explosive Ordnance Technician: Quinton Persaud M.D. Ph.D.; CLIA# [id number] 6 AM 8.7-22.4 PM <10 7 Normal Range 180 to 914 Indeterminate Range 145 to 180 Deficient Range <145 8 ADDITIONAL INFORMATION This test was developed and its performance characteristics determined by [facility] in a manner consistent with CLIA requirements. This test has not been cleared or approved by the U.S. Food and Drug Administration. Test Performed by: [facility] - [facility] [address] [place] [address] Explosive Ordnance Technician: Quinton Persaud M.D. Ph.D.; CLIA# [id number] Procedures Date Code Description Status 07/06/2019 96389 Stress Test Completed 06/15/2019 38624 EKG Tracing & Interpretation Completed 06/07/2019 31350 ECHO Transthorasic Realtime 2D W Doppler & Color Flow Hosp Completed 06/07/2019 65209 Holter Monitor Review (24 hr)dr hernández & interp only Completed Medical Devices Description No Information Available Encounters Type Date Location Provider Dx Diagnosis Office Visit 08/24/2019 [facility] Pedro Luis Aceves, G93.2 Benign intracranial 1:00p [facility] Anitra Grayson hypertension R51 Headache H53.8 Other visual disturbances R56.9 Unspecified convulsions Office Visit 06/15/2019 4:20p [facility] Kingsley Manrique R00.2 Palpitations Of Anitra Dumont M.D. R00.0 Tachycardia, unspecified E66.9 Obesity, unspecified R07.9 Chest pain, unspecified Z82.49 Family hx of ischem heart dis and oth dis of the circ sys F17.210 Nicotine dependence, cigarettes, uncomplicated Assessments Date Code Description Provider 08/24/2019 G93.2 Benign intracranial hypertension Pedro Luis Aceves M.D. 08/24/2019 R51 Headache Pedro Luis Aceves M.D. 08/24/2019 H53.8 Other visual disturbances Pedro Luis Aceves M.D. 08/24/2019 R56.9 Unspecified convulsions Pedro Luis Aceves M.D. 07/06/2019 R00.2 Palpitations Kingsley Dumont M.D. 07/06/2019 R00.0 Tachycardia, unspecified Chioma LoweDKate 07/06/2019 R07.9 Chest pain, unspecified Chioma LoweD. 06/15/2019 R00.2 Palpitations Kingsley Dumont M.D. 06/15/2019 R00.0 Tachycardia, unspecified Kingsley Dumont M.D. 06/15/2019 E66.9 Obesity, unspecified Jerald Lowe.DKate 06/15/2019 R07.9 Chest pain, unspecified Jerald Lowe.DKate 06/15/2019 Z82.49 Family history of ischemic heart Kingsley Dumont M.D. disease and other diseases of the circulatory system 06/15/2019 F17.210 Nicotine dependence, cigarettes, Kingsley Dumont M.D. uncomplicated 06/07/2019 R07.9 Chest pain, unspecified Silva Musa M.D. 06/07/2019 R00.2 Palpitations Silva Musa M.D. Plan of Treatment Future Appointment(s):09/05/2019 3:20 pm - Kingsley [facility] M.D. at [facility]08/24/2019 - Pedro Luis Aceves M.D.G93.2 Benign intracranial hypertensionFollow up:NABILA for records: Chris Braga, Neurologist at [facility] Follow up in 2 months TeleR51 WjdapwmlJ22.8 Other visual disturbancesReferral:Usama Mendez MD, UadbtncbwwwvfA59.9 Unspecified convulsionsNew Orders:EEG, Routine, Ordered: 08/24/19 Functional Status Description No Information Available Mental Status Description No Information Available Referrals Refer to Reason for Referral Status Appt Date Usama Mendez MD Created [address] [place] [address] [phone]
--- OUTSIDE RECORDS SUMMARY | 2019-09-02 04:16 | XMS REPORT | Continuity of Care Document ---
:1990 External Reference #:[id number] Author Name Usama Mendez M.D. (transmitted by agent of provider Mallory Mccann) Address [address] [place] [address] Care Team Providers Name Role Phone Pedro Luis Aceves M.D. 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 Problems Active Problems Provider Date Benign intracranial hypertension Onset: Social History Type Date Description Comments Sex Unknown ETOH Use Denies alcohol use Tobacco Use Start: Unknown Light tobacco smoker (10 or fewer cigarettes/day) Recreational Drug Use Regularly uses Marijuana Smoking Status Reviewed: 08/31/19 Light tobacco smoker (10 or fewer cigarettes/day) Allergies, Adverse Reactions, Alerts Active Allergies Reaction Severity Comments Date Tramadol 08/31/2019 Latex 08/31/2019 Diamox Itching 08/31/2019 Penicillin V 08/31/2019 Medications Active Medications SIG Qnty Indications Ordering Provider Date Hydroxyzine HCL Take 1 Tablet By Unknown 50mg Mouth Three Times Tablets Daily Paroxetine HCL Take 1 Tablet By Unknown 20mg Mouth Every Day Tablets Immunizations Description No Information Available Vital Signs Description No Information Available Results Description No Information Available Procedures Date Code Description Status 08/31/2019 94819 Scanning Computerized Ophthalmic Diagnostic Imag Posterior Completed Seg On 08/31/2019 37987 New Patient Comprehensive Exam Completed Medical Devices Description No Information Available Encounters Description No Information Available Assessments Date Code Description Provider 08/31/2019 G93.2 Benign intracranial hypertension Usama Mendez M.D. Plan of Treatment Future Appointment(s):11/30/2019 1:00 pm - Usama Mendez M.D. at [facility], 09/11/2019 11:30 am - [facility] at [facility], 2019 - Usama Mendez M.D.G93.2 Benign intracranial hypertensionComments: Smoking can increase the risk of developing or worsening any eye related disease , as well as affect your overall health. If you are a smoker, we strongly recommend that you quit.If you are not a smoker, we strongly recommend that you do not start. YOUR OPTIC NERVES APPEAR SWOLLEN WHICH WOULD SUGGESTINCREASED PRESSURE AROUND YOUR BRAIN. I WILL SEND THIS INFORMATION TO YOUR NEUROLOGIST.I WILL PLAN TO DO A VISUAL FIELD TEST IN THE COMING WEEKSFollow up:VF 24-2 NEXT AVAILABLE. RTC 3MONTHS, DFE, OCT NERVE You can expect to have your eyes dilated at your next visit. If Dr. Mendez orders any additional testing, it may require extra time. We recommendthat you bring sunglasses, as dilation drops often make you light sensitive until they wear off. We always recommend you bring someone to drive you home if you are uncomfortable driving with your eyes dilated. If you have any questions before your next visit, feel free to call our office at . Functional Status Description No Information Available Mental Status Description No Information Available Referrals Description No Information Available
--- OUTSIDE RECORDS SUMMARY | 2019-09-02 04:16 | XMS REPORT | Continuity of Care Document ---
:1990 Author Organization 2019 [facility] Address [address] [place] [address] Phone Care Team Providers Name Role Phone KIMBERLEY INFORMATION SYSTEMS PLANNERROSALBA Unavailable Unavailable Allergies, Adverse Reactions, Alerts Substance Reaction Status tramadol Hives (severe) Active Penicillins Active latex Hives Active Medications Medication Instructions Dosage Effective Dates Status Comments (start - stop) paroxetine 20 mg take 1 tablet by [...] morning and evening approximately 12 hours apart hydroxyzine HCl 50 take 1 tablet by 50 MG - Active mg tablet oral route 3 times every day paroxetine 20 mg take 1 tablet by 20 MG - No Longer tablet oral route every Active day Problems Condition Effective Dates (start - stop) Clinical Status Chest pain, unspecified type Heart palpitations Anxiety [...] For Visit Copied on Encounter 2019 - [facility] Jul- [facility], Primary [place]. [address], [place], [address], [address]. Kranthi tel:+[phone] [place], [address], [place] tel:+ [phone] 0001 - [facility] Chest pain, [facility], Primary unspecified ROSALBA. [address], Mike Carroll palpitationsAnxi [facility], [place], [place] [address]. Kranthi tel:[phone] [place], [address], [place] tel:[phone] Office/outpa 0001 - [facility] care needs Heart RISING tient S Inc, Primary (chief palpitationsChes 0- ROSALBA. 54 visit,est, Care complaint) t pain, [address], mod Mike Carroll chest pain unspecified type [place], [place], Street, (chief [address]. Kranthi complaint) tel:[phone] [place], [address], [place] tel: [phone] 0001 - [facility] Pseudotumor Apr- [facility], Primary cerebriIrregular - ROSALBA. 54 Care mensesModerate [address], Mike [place] persistent [place], [place], Street, reactive airway [address]. Kranthi disease without tel:[phone] [place], [place], complicationPTSD [address], [place] (post-traumatic tel: stress [phone] disorder)Anxiety 0001 - [facility] Encounter For Nov- INFANTE MARTIN. S Inc, Primary Removal Of [address] [place] Mike Kranthi [place], [place], [facility] [address]. Kranthi tel:[phone] [place], [address], [place] tel:+ [phone] 0001 - S Wound Nov- MASHRIQI Referring S Inc, Primary SOHAIL. Provider: Care 4 [facility], Kranthi Crisostomo [place], [place], [place], [place], [place] [address], [place] [address]. Program, tel: tel:[phone] Kranthi [phone] [address] [place], [address]. tel:[phone] Family History Family Member Diagnosis Age At Onset Unknown Immunizations Vaccine Date Status Comments Immunization Unknown Payers Payer name Insurance type Covered green party ID Authorization(s) Kedar Monterroso [id number] Social History Type Description Quantity Date Captured Comments Alcohol Use Details Unknown Caffeine Use Details Unknown Tobacco Use Status Smoking Status Unknown Vital Signs Date / Height Weight BMI Pulse Blood Temperature Respiratory Body Head BMI Time: Rate Pressure Rate Surface Circumference percentile Area 62.99 203.71 36.1 69 111/72 98.30 F 16 /min . in lbs 0 /min mm[Hg] meter(2) 2:00 kg/m PM eter (2) Chief Complaint And Reason For [...] Encounter Date Complaint History Of Present Illness chest pain (comments) Patient states that she has had this chest pain on and off for a long time but in the last week it has worsened. She went to the ER on 05/22/2019 due to this chest pain and elevated blood pressure while she was at work. Chest x-ray done was normal lab work was normal except for hypokalemia at 3.2 this was replaced while in the ER EKG was normal. Patient states that she has been having heart palpitations on and off. This is happening at all different times of the day, states that she does get short of breath during the palpitation. Chest pain is reproducible and is located to the anterior chest wall and under her breastbone on the left-hand side. Patient states that she does have a significant family history of heart arrhythmias father has history of SVT and her grandfather has history of A. fib. Patient is a smoker. Patient does not take control pills. No family history of blood clots. care needs Care [facility] follow up, not a TCM. patient was not admitted. The following are due: HIV screen, Influenza vaccine, Tdap, Td vaccine. chest pain The patient presents with a complaint of chest pain. The symptoms began 1 week ago. The problem occurs intermittently. The patient rates the severity of the chest pain as mild and the symptoms have remained unchanged. The patient also complains of fatigue and palpitations. The symptoms are aggravated by anxiety. Previous diagnostics/procedures include Electrocardiogram. Additional information: pt states she did go to [facility] ER and they did EKG, chest xray and labwork. states they told her that she just had chest wall pain, and to take ibuprofin for pain. Functional Status Encounter Date Functional Assessment Cognitive Assessment N/A Orientation - Oriented to time, place, person, situation. Medications Administered Medication Instructions Dosage Effective Dates (start - stop) Status Comments Drug Treatment Unknown Instructions Date Instruction Additional Information Complete lab work Related to Heart palpitations paroxetine and hydroxyzine Related to Anxiety complete lab workReferral to Related to Chest pain, unspecified Cardiology for possible stress test type due to family history, and smoking. 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
--- OUTSIDE RECORDS SUMMARY | 2019-09-02 04:16 | XMS REPORT | Continuity of Care Document ---
:1991 Author Organization 0001 - S [facility] Address [address] [place] [address] Phone Care Team Providers Name Role Phone KIMBERLEY USER ACCEPTANCE TESTERROSALBA Unavailable Unavailable Allergies, Adverse Reactions, Alerts Substance [...] For Visit Copied on Encounter 2019 - S Jul-3 RISING [employer], Primary ROSALBA. 54 33-[address], [place], [place], Street, [address]. Kranthi tel:[phone] [place], [address], [place] tel:[phone] 0001 - S Mar-2 ANGELA [employer], Primary [place]. 33-57 Care 0 [address] , [place], [place], Street, [address]. Kranthi tel:[phone] [place], [address], [place] tel:[phone] 0001 - S Moderate Mar-2 ANGELA [employer], Primary persistent [place]. 33-57 Care asthma with [address], Mike [place] (acute) [place], [place], [place], exacerbation [address]. Kranthi tel:[phone] [place], [address], [place] tel:[phone] 0001 - S Mar-0 [employer], Primary ROSALBA. 54 33-[address], [place], [place], Street, [address]. Kranthi tel:[phone] [place], [address], [place] tel:[phone] Office/outpa 2019 - S Care Needs Chest pain, [facility] [employer], Primary (chief unspecified ROSALBA. 54 visit,est, 33-57 Care complaint) typeHeart [address], mod [place], [place], Street, [place] [address]. Kranthi (chief tel:[phone] [place], [place], complaint) [phone], [place] Test tel:+ [phone] (chief complaint) chest pain (chief complaint) 0001 - [facility] Heart RISING S Inc, Primary palpitationsChes 0-202 ROSALBA. 54 - Care t pain, [address], [place] unspecified type [place], [place], Street, [address]. Kranthi tel:+[phone] [place], [address], [place] tel:[phone] 0001 - [facility] Pseudotumor Apr- RISING S Inc, Primary cerebriIrregular 1-201 ROSALBA. 54 -[address], [place] persistent [place], [place], [place], reactive airway [address]. 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 S Inc, Primary Removal Of 8-201 [address] - Care Sutures 4 Mike Burnham [place], [place], [facility] [address]. Kranthi tel:[phone] [place], [address], [place] tel:+ [phone] 0001 - [facility] Wound MASHRIQI Referring S Inc, Primary 5-201 SOHAIL. Provider: -57 Care 4 Mike VELVET CannonA Mike Crisostomo Hospitalist [facility] Program, - Kranthi [place]on [place], [place], [place], [place] [address], [place] [address]. Program, tel: tel:[phone] Kranthi [phone] [address] [place], [address]. tel:[phone] Family History Family Member Diagnosis Age At Onset Unknown Immunizations Vaccine Date Status Comments Immunization Unknown Payers Payer name Insurance type Covered alliance party ID Authorization(s) Kedar Monterroso [id number] Social History Type Description Quantity Date Captured Comments Alcohol Use Details Caffeine Use coffee and soda > 6 cups per day Details Tobacco Use Status Smoking Status Heavy tobacco smoker Smoking Tobacco Use Cigarette: Age Started: 11, Years Used 13 Cigarette: 10 Cigarettes per day, Pack Year: 6 Details Vital Signs Date / Height Weight BMI Pulse Blood Temperature Respiratory Body Head BMI Time: Rate Pressure Rate Surface Circumference percentile Area 62.99 203.93 36.1 73 117/83 98.40 F 16 /min 2. in lbs 3 /min mm[Hg] meter(2) 10:33 kg/m AM eter (2) Chief Complaint And [...] Complaint History Of Present Illness chest pain The patient presents with a complaint of chest pain. The patient describes the pain as tightness. The pain does not radiate to the back, flank, or groin. The patient also complains of fatigue. Relevant history for this patient includes tobacco use and family history of coronary artery disease but excludes diabetes, hypertension or personal history of coronary artery disease. The symptoms are aggravated by anxiety. The patient had a response to rest. The patient denies any dyspnea on exertion or lightheadedness. Previous diagnostics/procedures include Electrocardiogram. Test results Patient is also here today to discuss her test results for her Holter Monitor and Echo Care Needs WORK LISTCare Guidelines1 month follow - up : Anxiety - Hydroxyzine started last visit.The following are due: HIV screen, Influenza vaccine, Td vaccine, Tdap.Primary Care Provider: ROSALBA CHU NP Follow Up of Anxiety This is a follow up visit. Related symptoms are controlled. There is improvement of initial symptoms. The patient reports functioning as somewhat difficult. The patient presents with difficulty concentrating, difficulty staying asleep, diminished interest or pleasure, easily startled, fatigue and loss of appetite. The self denies any aggravating factors. The patient's relieving factors are a good response to medication. Additional information: 1 month f/u Anxiety and medication regimen. 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
--- OUTSIDE RECORDS SUMMARY | 2019-09-02 04:16 | XMS REPORT | Continuity of Care Document ---
:1990 Author Organization 2019 [facility] Address [address] [place] [address] Phone Care Team Providers Name Role Phone KIMBERLEY NURSE PRACTITIONERROSALBA Unavailable Unavailable Allergies, Adverse Reactions, Alerts Substance [...] Description For Visit Copied on Encounter 2019 [employer] Chest pain, RISING [employer] [facility], Primary unspecified ROSALBA. 33-57 Care typeHeart 0 Main , [facility] pal[place], [place], Street, [facility] [address]. [place] tel:[phone] [place], [address], [place] tel:+ [phone] 0001 - [facility] Heart May- RISING S Inc, Primary palpitationsChes 0 ROSALBA. 54 Care t pain, 0 [facility] [place] unspecified type [place], [facility], [address]. Kranthi tel:[phone] [place], [address], [place] tel:+ [phone] 0001 - S Inc, 57 [address] [place], [address], [place] tel:+ [phone] 0001 - [facility] Pseudotumor Apr- RISING S Inc, Primary cerebriIrregular ROSALBA. 54 Care mensesModerate 9 [facility], [place] persistent [place], [place], [place], reactive airway [address]. 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 S Inc, Primary Removal Of [address] Care Sutures 4 [place], [place], [facility] [address]. Kranthi tel:[phone] [place], [address], [place] tel: [phone] 0001 - [facility] Wound MASHRIQI Referring S Inc, Primary 5-201 SOHAIL. Provider: Care 4 [facility] Mike Crisostomo Hospitalist [facility] Program, Kranthi [place], [place], [place], [place] [address], [place] [address]. Program, tel: tel:[phone] Kranthi [phone] [address] [place], [address]. 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
--- OUTSIDE RECORDS SUMMARY | 2019-09-02 04:16 | XMS REPORT | Continuity of Care Document ---
:1990 Author Organization 0001 - S [facility] Address [address] [place] [address] Phone Care Team Providers Name Role Phone KIMBERLEY STRIKE ON MACHINE OPERATORROSALBA Unavailable Unavailable Allergies, Adverse Reactions, Alerts [...] For Visit Copied on Encounter 2019 - [facility] Jul-3 RISING [employer], Primary ROSALBA. 54 33-57 Care [address] , [place], [place], Street, [address]. Kranthi tel:[phone] [place], [address], [place] tel:[phone] 2019 - [facility] Jul-2 ANGELA S Inc, Primary [place]. 33-57 Care 0 [address] [place], [place], Street, [address]. Kranthi tel:[phone] [place], [address], [place] tel:[phone] 2019 - S Mar-0 RISING [employer], Primary ROSAL[place]. 54 33-57 Care [address] , [place], [place], Street, [address]. Kranthi tel:[phone] [place], [address], [place] tel:[phone] 2019 - S Chest pain, RISING [employer], Primary unspecified ROSALBA. 54 33-57 Care typeHeart 0 Main [facility] [place], [place], Street, [place] [address]. Kranthi tel:[phone] [place], [address], [place] tel:[phone] 2019 - S May- RISING [employer], Primary 8 ROSALBA. 54 33-57 Care [address] , [place], [place], Street, [address]. Kranthi tel:[phone] [place], [address], [place] tel:[phone] 2019 - [facility] Heart May- RISING [employer], Primary palpitationsChes 0- ROSALBA. 54 33-57 Care t pain, [address], Mike [place] unspecified type [place], [place], May, [address]. Kranthi tel:[phone] [place], [address], [place] tel:[phone] 0001 - S Pseudotumor Dec-3 RISING S Inc, Primary cerebriIrregular 1-201 ROSALBA. 54 - Care mensesModerate [address], Mike [place] persistent [place], [place], [place], reactive airway [address]. 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 S Inc, Primary Removal Of [address] Care Sutures 4 Miek Burnham [place], [place], [facility] [address]. Kranthi tel:+[phone] [place], [address], [place] tel:[phone] 0001 - [facility] Wound Nov- MASHRIQI Referring S Inc, Primary SOHAIL. Provider: Care 4 [facility] Mike Krantih Hospitalist [facility] Program, Kranthi Crisost[place], [place], [place], [place] [address], [place] [address]. Program, tel:+ tel:[phone] Kranthi [phone] [address] [place], [address]. tel:[phone] Family History Family Member Diagnosis Age At Onset Unknown Immunizations Vaccine Date Status Comments Immunization Unknown Payers Payer name Insurance type Covered republican ID Authorization(s) Kedar Monterroso [id number] Social History Type Description Quantity Date Captured [...] Cardiology. 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
--- OUTSIDE RECORDS SUMMARY | 2019-09-02 04:16 | XMS REPORT | Continuity of Care Document ---
:1990 Author Organization 2019 [facility] Address [address] [place] [address] Phone Care Team Providers Name Role Phone KIMBERLEY PIERCING ARTISTROSALBA Unavailable Unavailable Allergies, Adverse Reactions, Alerts Substance [...] Description For Visit Copied on Encounter 2019 [facility] Chest pain, RISING [employer] [facility], Primary unspecified ROSALBA. 54 33-57 Care typeHeart 0 Main , [facility] [place], [place], Street, [facility] [address]. Horace tel:[phone] [place], [address], [place] tel:+ [phone] 0001 - [facility] Heart May- RISING S Inc, Primary palpitationsChes 0-202 ROSALBA. 54 - Care t pain, [address] , Mike [place] unspecified type [place], [place], Street, [address]. Kranthi tel:+[phone] [place], [address], [place] tel:+ [phone] 0001 - S May- RISING S Inc, Primary 4-202 ROSALBA. 54 -57 Care [address] , Mike Carroll [place], [place], [place], [address]. Kranthi tel:+[phone] [place], [address], [place] tel:+ [phone] 0001 - [facility] Pseudotumor Apr- RISING S Inc, Primary cerebriIrregular 1- ROSALBA. 54 33- Care mensesModerate 9 Main , [facility] persistent [place], [place], [place], reactive airway [address]. 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 S Inc, Primary Removal Of [address] Care Sutures 4 Mike Burnham [facility] [address]. Kranthi tel:+[phone] [place], [address], [place] tel: [phone] 0001 - [facility] Wound Nov- MASHRIQI Referring S Inc, Primary SOHAIL. Provider: Care 4 [facility] Hospitalist [facility] Program, [place], [place], [place], [place] [address], [place] [address]. Program, tel:+ tel:[phone] Kranthi [phone] [address] [place], [address]. tel:[phone] Family History Family Member Diagnosis Age At Onset Unknown Immunizations Vaccine Date Status Comments Immunization Unknown Payers Payer name Insurance type Covered democrat ID Authorization(s) Kedar He [id number] Social History Type Description Quantity Date Captured [...] to Pseudotumor cerebri) Referral Ordered: ordered Referrals: Gynecology. Evaluate and treat Appointment date/timeframe: 05/25/2019 Referral Ordered: ordered Referrals: Neurology. Evaluate and treat Date Type Problem Goal Intervention Status Start [...] tolerate Diamox, was seeing Chris King at [place] and would like a second opinion Referral to BIOINFORMATICS SCIENTIST Related to Irregular menses start advair 1 [...]
--- OUTSIDE RECORDS SUMMARY | 2019-09-02 04:16 | XMS REPORT | Continuity of Care Document ---
:1990 Author Organization 2019 [facility] Address [address] [place] [address] Phone Care Team Providers Name Role Phone KIMBERLEY CUSTOMER CARE TEAM COACHROSALBA Unavailable Unavailable Allergies, Adverse Reactions, Alerts Substance [...] Description For Visit Copied on Encounter 2019 [employer] Chest pain, RISING [employer] [facility], Primary unspecified ROSALBA. 33-57 Care typeHeart 0 Main , [facility] pal[place], [place], Street, [facility] [address]. Orla tel:[phone] [place], [address], [place] tel:+ [phone] 0001 - [facility] Heart May- RISING S Inc, Primary palpitationsChes 0-202 ROSALBA. 54 - Care t pain, [address] , Mikemickie [place] unspecified type [place], [place], Street, [address]. Kranthi tel:+[phone] [place], [address], [place] tel:+ [phone] 0001 - S May- RISING S Inc, Primary 6-202 ROSALBA. 54 -57 Care [address] , Mike Carroll [place], [place], Street, [address]. Kranthi tel:+[phone] [place], [address], [place] tel:+ [phone] 0001 - [facility] Pseudotumor Apr- RISING S Inc, Primary cerebriIrregular 1- ROSALBA. 54 33- Care mensesModerate 9 [facility], [facility] persistent [place], [place], [place], reactive airway [address]. 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 S Inc, Primary Removal Of [address] Care Sutures 4 Marvin Burnhamon [facility] [address]. Kranthi tel:+[phone] [place], [address], [place] tel: [phone] 0001 - [facility] Wound Nov- MASHRIQI Referring S Inc, Primary 5201 SOHAIL. Provider: Care 4 [facility] Hospitalist [facility] Program, [place], [place], [place], [place] [address], [place] [address]. Program, tel:+ tel:[phone] Kranthi [phone] [address] [place], [address]. 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
--- NOTE | 2019-09-02 07:00 | ED ---
Progress - Progress Note Progress Note: Pt signed out to Dr. Gaytan at 09/02/19 0700 shift change pending LP anaesthesia and dispo. Pt was diagnosed with IIH and WEAVER, referred to Dr. Aceves, and discharged to home. Course/Dx - Course Course Of Treatment: This pt is a 28 Y/O F presenting to [facility] with a CC of a headache, described as a migraine that has been present for 2 weeks. She states that she has begun treatments with Dr. Aceves and was seen by a mixer attendant who stated that there is increased pressure behind her R eye. She states that the pain is rated a 6/10 in severity. She had no abnormalities on her PE. She will receive ativan to help calm her down to preform a spinal tap to assess fluid build-up. She was given Lidocaine and Ativan during her ED course. She will be signed out to Dr. Gaytan at 0700 09/02/2019 pending a theraputic lumbar punture by anesthesia and disposition. Attempt at LP was unsuccessful, pt is moderately obese and I was unable to feel definite landmarks. I spoke to Dr. Hernandez from anesthesia, either he or one of his colleagues will come to the ED in the am to perform therapeutic LP. We will need a pressure measurement and enough fluid removed to get CSF pressure below 20 cm. Pt signed out to Dr. Gaytan at 09/02/19 0700 shift change pending LP anaesthesia and dispo. Pt was diagnosed with IIH and WEAVER, referred to Dr. Aceves, and discharged to home. - Diagnoses Provider Diagnoses: IIH (idiopathic intracranial hypertension), Headache - Critical Care Time Critical Care Statement: Critical care time is provided exclusive of any time spent performing procedures. Discharge ED - Sign-Out/Discharge Documenting (check all that apply): Patient Departure - dc - Discharge Plan Condition: Stable Disposition: HOME Patient Education Materials: Acute Headache (ED) Forms: *Work Release Referrals: Sandra Adhikari NP [Primary Care Provider] - Karel Aceves MD [Medical Doctor] - Additional Instructions: Follow up with Dr. Aceves this coming week. If you experience new or worsening symptoms please return to the ER. - Billing Disposition and Condition Condition: STABLE Disposition: Home - Attestation Statements Document Initiated by Scribe: Yes Documenting Scribe: Yoni Urena Provider For Whom Scribe is Documenting (Include Credential): Pedro Luis Gaytan DO Scribe Attestation: IYoni, scribed for Pedro Luis Gaytan DO on 09/02/19 at 1004. Scribe Documentation Reviewed: Yes Provider Attestation: The documentation as recorded by the scribe, Yoni Urena accurately reflects the service I personally performed and the decisions made by me, Pedro Luis Gaytan DO Status of Scribe Document: Viewed
[2019-09-02 07:54] LABS: Body Fluid Source Cerebral Spinal
[2019-09-02 08:15] LABS: CSF Glucose 60 mg/dL (40-70)
[2019-09-02 09:34] VITALS: BP 107/74
== END 2019-09-02 09:20 | disposition home or self-care (01) ==
LOC: ED 02:12
DX: G93.2 Benign intracranial hypertension (principal); F17.210 Nicotine dependence, cigarettes, uncomplicated; Z88.0 Allergy status to penicillin; J45.909 Unspecified asthma, uncomplicated; F32.9 Major depressive disorder, single episode, unspecified
CPT/HCPCS: 36415; 62270; 82945; 84157; 87070; 87205; 89051; 99284; A9270-GY